=== PATIENT | female | born 1945 | race Caucasian/White ===

== ENCOUNTER 2017-09-24 06:07 | Day surgery (SDC) | payer MEDICARE, OTHER ==
[~2017-09-24] VITALS: Ht 157.5 cm; Wt 84.2 kg
[~2017-09-24 06:07] MED LIST: ANAS1 PO; ASCO250CH PO; ASPI81EC PO; Ativan1 MG PO; BUPR75; CALCIT950 PO; CALCITONIN; CALCIUM CITRAT1 EAC1 PO; CALMAGZIN PO; CARI350 PO; CETI10 PO; CHOL10002 PO; CIPR500 PO; CITA20; CLIN300 PO; CYAN1000I; CYANOCOBALAMIN; CYCL10 PO; Cymbalta60 MG PO; DICL25ER PO; DOCU100 PO; DULO30 PO; DULO60 PO; ENOX40I SC; FERROUS GLUCON PO; FLAX; FLAX PO; FOLIC; GABA300 PO; GINKO BILOBA PO; GLYCOLAX; HYDACE7.5 PO; HYDMOR2 PO; HYDROXYQUINOLINE1 GM PO; HYDSUL200 PO; Hydrocodone-Ap1 EA20 PO; LEVLIO1 PO; LEVSOD100; MAGGLU250 PO; MELA3 PO; MELO7.5 PO; METO50 PO; METO50ER PO; METPRE4DP PO; MIACALCIN; MULVITMIND; MULVITMINF PO; Mobic15 MG PO; NABU750; Norco 5-325 Ta1 EACH PO; OXYC10TA19 PO; OXYC5 PO; PROM12.5S PO; PROM25 PO; PROP65 PO; SALMON OIL PO; Super B With V1 EACH PO; THYR60 PO; TRAM50 PO; VITA25000 PO; VITAMINS; VITB100 PO; Vitamin B Comple1 EA PO; ZOLP10 PO; ZOLP5 PO; [UNRECOGNIZED DRUG - OTHER]; [UNRECOGNIZED DRUG - OTHER]; [UNRECOGNIZED DRUG - OTHER] PO; [UNRECOGNIZED DRUG - REMARK]
[2017-09-24] MEDS ORDERED: Desyrel50 MG PO (07:05)
[2017-12-30] MEDS ORDERED: POTASSIUM PO (15:26)
[2017-12-30] MEDS ORDERED: [UNRECOGNIZED DRUG - OTHER] PO (15:26)
[2017-12-30] MEDS ORDERED: TYLENOL PO (15:26)
[2017-12-30] MEDS ORDERED: CYAN1000I IM (15:27)
[2017-12-30] MEDS ORDERED: FLAX SEED OIL1000 MG PO (15:27)
[2017-12-30] MEDS ORDERED: Hair, Skin & N1 EACH PO (15:27)
[2017-12-30] MEDS ORDERED: PROLIA60 MG/1 ML SC (15:27)
[2017-12-30] MEDS ORDERED: CALTRATE PO (15:28)
== END 2017-09-24 08:25 | disposition home or self-care (01) ==
LOC: ORSCSDS 06:07
PROVIDERS: Otolaryngology
PROC: 0D758ZZ Dilation of Esophagus, Via Natural or Artificial Opening Endoscopic (ICD-10-PCS; principal; 2017-09-24 07:30)
DX: R13.14 Dysphagia, pharyngoesophageal phase (principal); I10 Essential (primary) hypertension; E03.9 Hypothyroidism, unspecified; E78.5 Hyperlipidemia, unspecified; M79.7 Fibromyalgia; F32.9 Major depressive disorder, single episode, unspecified; Z98.84 Bariatric surgery status; Z87.891 Personal history of nicotine dependence; Z79.899 Other long term (current) drug therapy
CPT/HCPCS: J1100; J1885; J7120

== ENCOUNTER → 2017-10-31 | Outpatient (CLI) | payer MEDICARE, OTHER ==
[~2017-10-31] MED LIST changes: +CALTRATE PO; +CYAN1000I IM; +Calcium Citrat200 MG PO; +DEX4 GLUCOSE BIT1 GM PO; +Desyrel50 MG PO; +ENOX40I PO; +FLAX SEED OIL1000 MG PO; +Hair, Skin & N1 EACH PO; +POTASSIUM PO; +PROLIA60 MG/1 ML SC; +TYLENOL PO; +[UNRECOGNIZED DRUG - OTHER] PO
[2017-11-03 21:32] LABS: Alpha Hyrdroxyalprazolam Not Detected (NOTDET); Alpha hydroxytriazolam Not Detected (NOTDET); Alprazolam Not Detected (NOTDET); Confirm Clonazepam LC/MS Not Detected (NOTDET); Confirm Flunitrazepam LC/MS Not Detected (NOTDET); Diazepam Not Detected (NOTDET); Flurazepam Not Detected (NOTDET); Lorazepam Not Detected (NOTDET); Midazolam Not Detected (NOTDET); Temazepam Not Detected (NOTDET)
== END ==
LOC: LAB EV 15:27
PROVIDERS: Student in an Organized Health Care Education/Training Program
DX: Z51.81 Encounter for therapeutic drug level monitoring (principal); Z79.899 Other long term (current) drug therapy
CPT/HCPCS: G0480

== ENCOUNTER 2018-01-14 08:49 | Day surgery (SDC) | payer MEDICARE, OTHER ==
[~2018-01-14] VITALS: Ht 157.5 cm; Wt 82.5 kg
[~2018-01-14 08:49] MED LIST changes: -Calcium Citrat200 MG PO; -DEX4 GLUCOSE BIT1 GM PO; -ENOX40I PO
[2018-01-14] MEDS ORDERED: Calcium Citrat200 MG PO (11:23)
[2018-01-15 04:04] LABS: BASOPHILS ABSOLUTE AUTO 0.02 K/mm3 (0.00-0.23); BASOPHILS PERCENT AUTO 0 % (0-2); EOSINOPHILS PERCENT AUTO 0 % (0-6); Hematocrit 32.8 % (33.0-51.0); Hemoglobin 10.8 g/dL (11.5-16.0); IMMATURE GRAN ABSOLUTE AUTO 0.04 K/mm3 (0.00-0.10); IMMATURE GRAN PERCENT AUTO 0 % (0-1); LYMPHOCYTES ABSOLUTE AUTO 0.93 K/mm3 (0.84-5.20); LYMPHOCYTES PERCENT AUTO 8 % (21-46); MONOCYTES ABSOLUTE AUTO 1.16 K/mm3 (0.16-1.47); MONOCYTES PERCENT AUTO 10 % (4-13); Mean Corpuscular HGB 30.9 pg (26.0-34.0); Mean Corpuscular HGB Conc 32.9 g/dL (31.5-36.5); Mean Corpuscular Volume 94 fL (80-100); Mean Platelet Volume 9.4 fL (9.1-12.4); NEUTROPHILS ABSOLUTE AUTO 9.84 K/mm3 (1.96-9.15); NEUTROPHILS PERCENT AUTO 82 % (41-73); Platelet Count 187 K/mm3 (150-400); RDW Coefficient Variation 13.6 % (11.7-14.2); RDW Standard Deviation 45.8 fL (35.1-46.3); White Blood Cell Count 11.99 K/mm3 (4.00-11.30)
[2018-01-15 04:26] LABS: Anion Gap 6 mmol/L (6-16); Blood Urea Nitrogen 14 mg/dL (8-24); Bun/Creatinine Ratio 24.1 (12.0-20.0); CO2, Blood 29 mmol/L (21-32); Calcium, Blood 7.6 mg/dL (8.5-10.1); Chloride, Blood 105 mmol/L (98-108); Creatinine, Blood 0.58 mg/dL (0.40-1.00); Glomerular Filtration Rate >60 (60-); Glucose, Blood 135 mg/dL (70-99); Magnesium, Blood 2.1 mg/dL (1.6-2.4); Potassium, Blood 3.3 mmol/L (3.5-5.5); Sodium, Blood 140 mmol/L (136-145)
[2018-01-15] MEDS ORDERED: DEX4 GLUCOSE BIT1 GM PO (07:55)
[2018-01-15] MEDS ORDERED: ENOX40I PO (14:10)
== END 2018-01-16 12:36 | disposition home or self-care (01) ==
LOC: ORSCMMR 08:49 → SURS 08:49 → PRE IP 08:49 → EDSTATUS 12:30 → PRE IP 12:30 → SURS 17:12 → ORSCMMR 01-16 12:36
PROVIDERS: Orthopaedic Surgery
PROC: 8E0YXBZ Computer Assisted Procedure of Lower Extremity (ICD-10-PCS; principal; 2018-01-16)
PROC: 0SRC0J9 Replacement of Right Knee Joint with Synthetic Substitute, Cemented, Open Approach (ICD-10-PCS; principal; 2018-01-16)
DX: M17.11 Unilateral primary osteoarthritis, right knee (principal); M79.7 Fibromyalgia; E88.81 Metabolic syndrome and other insulin resistance; E03.9 Hypothyroidism, unspecified; I10 Essential (primary) hypertension; Z79.899 Other long term (current) drug therapy; Z87.891 Personal history of nicotine dependence
CPT/HCPCS: 36415; 73560-RT; 80048; 82947; 83735; 85025; 86850; 86900; 86901; 88300; 97110; 97116; 97162; 97530; C1713; C1776; G8978; G8979; G8980; J0171; J0735; J1100; J1650; J1885; J2001; J2250; J2405; J2795; J3010; J3370; J7120

== ENCOUNTER → 2018-02-09 | Outpatient (CLI) | payer MEDICARE, OTHER ==
[~2018-02-09] MED LIST changes: +Calcium Citrat200 MG PO; +DEX4 GLUCOSE BIT1 GM PO; +ENOX40I PO
[2018-02-09 18:39] LABS: Alanine Aminotransfer (ALT/SGP 22 U/L (12-78); Albumin, Blood 3.6 g/dL (3.4-5.0); Albumin/Globulin Ratio 1.4 (0.8-1.8); Alk Phos 64 U/L (50-136); Anion Gap 7 mmol/L (6-16); Aspartate Aminotrans (AST/SGOT 28 U/L (12-37); Bilirubin, Total 0.4 mg/dL (0.1-1.0); Blood Urea Nitrogen 12 mg/dL (8-24); Bun/Creatinine Ratio 16.8 (12.0-20.0); CO2, Blood 32 mmol/L (21-32); Calcium, Blood 8.8 mg/dL (8.5-10.1); Chloride, Blood 101 mmol/L (98-108); Creatinine, Blood 0.71 mg/dL (0.40-1.00); Globulin, Blood 2.5 g/dL (2.2-4.0); Glomerular Filtration Rate >60 (60-); Glucose, Blood 92 mg/dL (70-99); Sodium, Blood 140 mmol/L (136-145); Total Protein, Blood 6.1 g/dL (6.4-8.2)
== END | disposition home or self-care (01) ==
LOC: LAB 14:45 → LAB SHORT 14:45
PROVIDERS: Internal Medicine Hematology & Oncology
DX: D51.9 Vitamin B12 deficiency anemia, unspecified (principal)
CPT/HCPCS: 80053; 83540; 83550

== ENCOUNTER 2018-03-18 18:54 | Emergency (ER) | payer MEDICARE, OTHER ==
[~2018-03-18] VITALS: Ht 154.9 cm; Wt 81.7 kg
[2018-03-18 19:36] LABS: BASOPHILS ABSOLUTE AUTO 0.07 K/mm3 (0.00-0.23); BASOPHILS PERCENT AUTO 1 % (0-2); EOSINOPHILS ABSOLUTE AUTO 0.43 K/mm3 (0.00-0.68); EOSINOPHILS PERCENT AUTO 6 % (0-6); Hematocrit 31.2 % (33.0-51.0); IMMATURE GRAN ABSOLUTE AUTO 0.02 K/mm3 (0.00-0.10); IMMATURE GRAN PERCENT AUTO 0 % (0-1); LYMPHOCYTES ABSOLUTE AUTO 2.23 K/mm3 (0.84-5.20); LYMPHOCYTES PERCENT AUTO 29 % (21-46); MONOCYTES PERCENT AUTO 9 % (4-13); Mean Corpuscular HGB Conc 32.1 g/dL (31.5-36.5); Mean Corpuscular Volume 97 fL (80-100); Mean Platelet Volume 9.5 fL (9.1-12.4); NEUTROPHILS ABSOLUTE AUTO 4.27 K/mm3 (1.96-9.15); NEUTROPHILS PERCENT AUTO 55 % (41-73); Platelet Count 241 K/mm3 (150-400); RDW Coefficient Variation 12.4 % (11.7-14.2); RDW Standard Deviation 44.2 fL (35.1-46.3); Red Blood Cell Count 3.23 M/mm3 (3.80-5.20); White Blood Cell Count 7.72 K/mm3 (4.00-11.30)
[2018-03-18 19:48] LABS: International Normalized Ratio 1.01; Prothrombin Time Results 10.4 Sec (9.7-11.5)
[2018-03-18 19:56] LABS: Alanine Aminotransfer (ALT/SGP 24 U/L (12-78); Albumin, Blood 2.9 g/dL (3.4-5.0); Albumin/Globulin Ratio 1.2 (0.8-1.8); Alk Phos 47 U/L (50-136); Anion Gap 7 mmol/L (6-16); Aspartate Aminotrans (AST/SGOT 24 U/L (12-37); Bilirubin, Total 0.2 mg/dL (0.1-1.0); Blood Urea Nitrogen 15 mg/dL (8-24); Bun/Creatinine Ratio 22.3 (12.0-20.0); CO2, Blood 32 mmol/L (21-32); Calcium, Blood 7.7 mg/dL (8.5-10.1); Chloride, Blood 106 mmol/L (98-108); Creatinine, Blood 0.67 mg/dL (0.40-1.00); Globulin, Blood 2.4 g/dL (2.2-4.0); Glomerular Filtration Rate >60 (60-); Glucose, Blood 120 mg/dL (70-99); Potassium, Blood 3.8 mmol/L (3.5-5.5); Sodium, Blood 145 mmol/L (136-145); Total Protein, Blood 5.3 g/dL (6.4-8.2)
== END 2018-03-18 21:20 | disposition short-term general hospital (02) ==
LOC: ER 18:54
PROVIDERS: Emergency Medicine
DX: K92.2 Gastrointestinal hemorrhage, unspecified (principal); Z88.0 Allergy status to penicillin; Z88.2 Allergy status to sulfonamides; Z88.5 Allergy status to narcotic agent; Z88.8 Allergy status to other drugs, medicaments and biological substances; Z79.899 Other long term (current) drug therapy; Z87.891 Personal history of nicotine dependence
CPT/HCPCS: 80053; 82272; 85025; 85610; 85730; 86850; 86900; 86901; 93005; 93010; 96361; 96374; 99285-25; C9113; J7030

== ENCOUNTER → 2018-10-19 | Outpatient (CLI) | payer MEDICARE, OTHER ==
[2018-10-19 19:50] LABS: Source, Urine Catheter
[2018-10-19 20:11] LABS: Appearance, Urine Hazy (Clear); Bilirubin, Urine Neg (Neg); Blood, Urine 3+ (Neg); Color, Urine Yellow (P-Yellow); Glucose Qualitative, Urine Neg (Neg); Ketones, Urine Neg (Neg); Leukocyte Esterase, Urine 2+ (Neg); Nitrite, Urine Neg (Neg); Protein, Urine 1+ (Neg); Urobilinogen, Urine NORM (Normal)
[2018-10-19 20:29] LABS: Bacteria Rare /hpf; Squamous Epithelial Cells Few /hpf (Few); White Blood Cells, Urine 25-50 /hpf (0-5)
[2018-10-19 20:30] LABS: Mucus Light (0-Heavy); Transitional Epithelial Cells Few /hpf (0-Rare)
[2018-10-21 15:07] LABS: HPV 16 Negative (Negative); HPV 18 Negative (Negative); HPV OTHER HR TYPES Negative (Negative)
== END | disposition home or self-care (01) ==
LOC: LAB 19:48 → LAB SHORT 19:48
PROVIDERS: Nurse Practitioner Women's Health
DX: R31.0 Gross hematuria (principal); R32 Unspecified urinary incontinence; Z91.89 Other specified personal risk factors, not elsewhere classified
CPT/HCPCS: 81001; 87077; 87086; 87186; 87624; G0123

== ENCOUNTER → 2018-12-07 | Outpatient (CLI) | payer MEDICARE, OTHER ==
[2018-12-07 17:24] LABS: Source, Urine Catheter
[2018-12-07 17:41] LABS: Bilirubin, Urine Neg (Neg); Blood, Urine 3+ (Neg); Glucose Qualitative, Urine Neg (Neg); Ketones, Urine Neg (Neg); Leukocyte Esterase, Urine 3+ (Neg); Nitrite, Urine Neg (Neg); Protein, Urine 2+ (Neg); Urobilinogen, Urine NORM (Normal); pH, Urine 6.5 (5.0-8.0)
[2018-12-07 17:58] LABS: Appearance, Urine Cloudy (Clear); Color, Urine Yellow (P-Yellow)
[2018-12-07 18:00] LABS: White Blood Cells, Urine TNTC /hpf (0-5)
[2018-12-07 18:01] LABS: Squamous Epithelial Cells Few /hpf (Few)
[2018-12-07 18:02] LABS: Bacteria Many /hpf; Transitional Epithelial Cells Few /hpf ({null, 0-Rare})
== END | disposition home or self-care (01) ==
LOC: LAB 17:23 → LAB SHORT 17:23
PROVIDERS: Nurse Practitioner Women's Health
DX: R30.0 Dysuria (principal)
CPT/HCPCS: 81001; 87077; 87086; 87186

== ENCOUNTER → 2018-12-08 | Outpatient (CLI) | payer MEDICARE, OTHER | LOC: LAB SHORT 16:43 → LAB 16:43 | DX: L08.9 Local infection of the skin and subcutaneous tissue, unspecified (principal); L56.8 Other specified acute skin changes due to ultraviolet radiation; L40.8 Other psoriasis | CPT/HCPCS: 87070; 87077; 87147; 87186; 87205 ==

== ENCOUNTER → 2019-01-06 | Outpatient (CLI) | payer MEDICARE, OTHER ==
[2019-01-06 18:59] LABS: Source, Urine Catheter
[2019-01-06 19:40] LABS: Bilirubin, Urine Neg (Neg); Blood, Urine Neg (Neg); Glucose Qualitative, Urine Neg (Neg); Ketones, Urine Neg (Neg); Leukocyte Esterase, Urine Neg (Neg); Nitrite, Urine Neg (Neg); Protein, Urine Neg (Neg); Urobilinogen, Urine NORM (Normal)
[2019-01-06 20:04] LABS: Appearance, Urine Clear (Clear); Color, Urine Yellow (P-Yellow)
== END | disposition home or self-care (01) ==
LOC: LAB 18:58 → LAB SHORT 18:58
PROVIDERS: Nurse Practitioner Women's Health
DX: N39.0 Urinary tract infection, site not specified (principal)
CPT/HCPCS: 81003

== ENCOUNTER → 2020-04-26 | Outpatient (CLI) | payer MEDICARE | END | disposition home or self-care (01) | LOC: LAB EV 17:10 → LAB SHORT 17:10 | DX: R82.998 Other abnormal findings in urine (principal) | CPT/HCPCS: 87077; 87086; 87186 ==

== ENCOUNTER 2020-09-01 11:47 | Inpatient (IN) | payer MEDICARE ==
[~2020-09-01] VITALS: Ht 154.9 cm; Wt 89.9 kg
[~2020-09-01 11:47] MED LIST changes: +CALCIUM CIT 311 EACH PO; -Calcium Citrat200 MG PO; +ESTRADIOL42.5 GM VAG
--- NOTE | 2020-09-06 07:45 | NUR ---
History, Chart, Medications and Allergies reviewed before start of procedure. Patient confirms NPO status and agrees with scheduled surgery. ROOM DELAYED GOING BACK WAITING FOR MEDICATIONS FROM PHARMACY
--- NOTE | 2020-09-06 11:55 | NUR ---
PT ARRIVED TO ROOM ON OWN BED, SLEEPY, ANSWERS QUESTIONS APPROPRIATELY, POST PO VS COMMENCED AND STABLE. PT'S OPERATIVE R SHOULDER WITH BULKY SPONGE TAPE AND GAUZE DRESSING C/D/I, NO SHADOWING. CAPILLARY REFILL <3 SECONDS, FINGER WARM/PINK, ABLE TO SQUEEZE THIS RN'S FINGERS, TOUCH SENSATION INTACT. PT 2L NC AT 97% SPO2. PT DENIES NAUSEA, DOES NOT RATE PAIN, NO GRIMACE/MOAN, IS FALLING ASLEEP DURING ASSESSMENT
--- NOTE | 2020-09-06 15:15 | NUR ---
PT/OT team treating patient and spouse.
--- NOTE | 2020-09-06 16:34 | NUR ---
post op vss complete and stable. pt sitting up in bed, is tolerating PO intake, has voided, states to incontinence issues, has been provided with pull-up style incontinent underwear. pt rates pain at 4/10 following analgesia per mar.
[2020-09-07 04:09] LABS: BASOPHILS ABSOLUTE AUTO 0.03 K/mm3 (0.00-0.23); BASOPHILS PERCENT AUTO 0 % (0-2); EOSINOPHILS ABSOLUTE AUTO 0.01 K/mm3 (0.00-0.68); EOSINOPHILS PERCENT AUTO 0 % (0-6); Hematocrit 29.2 % (33.0-51.0); Hemoglobin 9.5 g/dL (11.5-16.0); IMMATURE GRAN ABSOLUTE AUTO 0.08 K/mm3 (0.00-0.10); IMMATURE GRAN PERCENT AUTO 1 % (0-1); LYMPHOCYTES ABSOLUTE AUTO 1.38 K/mm3 (0.84-5.20); LYMPHOCYTES PERCENT AUTO 8 % (21-46); MONOCYTES ABSOLUTE AUTO 1.25 K/mm3 (0.16-1.47); MONOCYTES PERCENT AUTO 7 % (4-13); Mean Corpuscular HGB Conc 32.5 g/dL (31.5-36.5); Mean Corpuscular Volume 92 fL (80-100); Mean Platelet Volume 9.7 fL (9.1-12.4); NEUTROPHILS ABSOLUTE AUTO 14.28 K/mm3 (1.96-9.15); NEUTROPHILS PERCENT AUTO 84 % (41-73); Platelet Count 210 K/mm3 (150-400); RDW Coefficient Variation 13.1 % (11.7-14.2); RDW Standard Deviation 43.8 fL (35.1-46.3); Red Blood Cell Count 3.17 M/mm3 (3.80-5.20); White Blood Cell Count 17.03 K/mm3 (4.00-11.30)
[2020-09-07 04:30] LABS: Anion Gap 5 mmol/L (6-16); Blood Urea Nitrogen 11 mg/dL (8-24); Bun/Creatinine Ratio 16.2 (12.0-20.0); CO2, Blood 32 mmol/L (21-32); Calcium, Blood 8.7 mg/dL (8.5-10.1); Chloride, Blood 105 mmol/L (98-108); Creatinine, Blood 0.68 mg/dL (0.40-1.00); Glomerular Filtration Rate >60 (60-); Glucose, Blood 124 mg/dL (70-99); Magnesium, Blood 2.1 mg/dL (1.6-2.4); Potassium, Blood 3.7 mmol/L (3.5-5.5); Sodium, Blood 142 mmol/L (136-145)
--- NOTE | 2020-09-07 05:59 | NUR ---
SUMMARY PT TOLERATING OOB FOR BSC TONIGHT WITH 1 ASSIST.RUE IMMOBILIZER REMAINS IN PLACE.PT TOLERATING PO PAIN MEDS TONIGHT.VOIDING BOTH PER BSC AND ATTENDS PT IS INTERMITTENTLY INCONTINENT BASELINE.NEW IV WAS OBTAINED PER Sebastien NOGUERA RN FOR IV ANTIBIOTICS PRIOR IV NOTED INFILTRATED AND WAS UNABLE TO USE.
--- NOTE | 2020-09-07 07:30 | NUR ---
DR. ANGULO ROUNDED ON PT THIS AM. NOTIFIED THAT PT'S WBC COUNT IS ELEVATED AND SHE HAD A FEVER OF 100.1. PT UP TO CHAIR AND DEEP BREATHING ENCOURAGED.
--- NOTE | 2020-09-07 12:51 | NUR ---
09/07/20 1251 Heather Kapoor VERIFICATIONS: EDIT CHART.
--- NOTE | 2020-09-07 17:49 | NUR ---
22G IV REMOVED FROM L UPPER ARM.
--- NOTE | 2020-09-07 17:50 | NUR ---
DISCHARGE PT AND SPOUSE WERE PROVIDED WITH WRITTEN AND VERBAL DISCHARGE INSTRUCTIONS; THEY REPORTED UNDERSTANDING. DRESSINGS PROVIDED. PAIN MANAGED AT TIME OF DISCHARGE. VSS. SPOKE WITH DARREN AT DR. ANGULO'S OFFICE REGARDING HOME HEALTH PHYSICAL AND OCCUPATIONAL THERAPY, SHE REPORTED SHE WOULD ARRANGE IT. MILKA BRANDON NOTIFIED THAT FOLLOW-UP REGARDING HOME HEALTH WOULD BE NEEDED FOR THIS PT. TRANSPORT WITH [facility] ARRANGED FOR PT. PT DISCHARGED AT APPROXIMATELY 1500.
== END 2020-09-07 15:15 | disposition home or self-care (01) | DRG 483 ==
LOC: SURS 09-06 06:07 → PRE IP 09-06 07:30 → SURS 09-06 11:45
PROVIDERS: ADMIT Orthopaedic Surgery
PROC: 0RRJ00Z Replacement of Right Shoulder Joint with Reverse Ball and Socket Synthetic Substitute, Open Approach (ICD-10-PCS; principal; 2020-09-06 07:30)
DX: M19.011 Primary osteoarthritis, right shoulder (principal); I10 Essential (primary) hypertension; E66.9 Obesity, unspecified; G47.33 Obstructive sleep apnea (adult) (pediatric); Z98.84 Bariatric surgery status; M79.7 Fibromyalgia; Z68.37 Body mass index [BMI] 37.0-37.9, adult; Z87.891 Personal history of nicotine dependence
CPT/HCPCS: 36415; 73030; 80048; 83735; 85025; 88300; 97110; 97116; 97162; 97166; 97535; A9270; C1713; C1776; J0171; J0735; J1100; J1885; J2370; J2405; J2704; J2795; J3010; J3370; J7120

== ENCOUNTER → 2020-10-15 | Outpatient (CLI) | payer MEDICARE | END | disposition home or self-care (01) | LOC: PLD 16:23 → LAB SHORT 16:23 | DX: N39.0 Urinary tract infection, site not specified (principal) | CPT/HCPCS: 87086 ==

== ENCOUNTER → 2020-10-27 | Outpatient (CLI) | payer MEDICARE | END | disposition home or self-care (01) | LOC: LAB SHORT 17:26 → LAB EV 17:26 | DX: N39.0 Urinary tract infection, site not specified (principal) | CPT/HCPCS: 87077; 87086; 87186 ==

== ENCOUNTER → 2021-01-15 | Outpatient (CLI) | payer MEDICARE ==
[2021-01-16 10:40] LABS: Stool Occult Bld Immuno 1 Negative (NEGATIVE)
== END | disposition home or self-care (01) ==
LOC: EDSTATUS 10:55 → LAB SHORT 15:47 → LAB EV 15:47
PROVIDERS: Student in an Organized Health Care Education/Training Program
DX: D50.9 Iron deficiency anemia, unspecified (principal)
CPT/HCPCS: 82274

== ENCOUNTER → 2022-01-04 | Outpatient (CLI) | payer MEDICARE | END | disposition home or self-care (01) | LOC: LAB SHORT 16:41 | DX: N39.0 Urinary tract infection, site not specified (principal) | CPT/HCPCS: 87077; 87086; 87186 ==

== ENCOUNTER → 2022-10-08 | Outpatient (CLI) | payer MEDICARE ==
[2022-10-08 18:03] LABS: BASOPHILS ABSOLUTE AUTO 0.01 K/mm3 (0.00-0.23); BASOPHILS PERCENT AUTO 0 % (0-2); EOSINOPHILS ABSOLUTE AUTO 0.21 K/mm3 (0.00-0.68); EOSINOPHILS PERCENT AUTO 2 % (0-6); Hematocrit 38.9 % (33.0-51.0); IMMATURE GRAN ABSOLUTE AUTO 0.05 K/mm3 (0.00-0.10); IMMATURE GRAN PERCENT AUTO 0 % (0-1); LYMPHOCYTES ABSOLUTE AUTO 1.74 K/mm3 (0.84-5.20); LYMPHOCYTES PERCENT AUTO 15 % (21-46); MONOCYTES ABSOLUTE AUTO 0.65 K/mm3 (0.16-1.47); MONOCYTES PERCENT AUTO 6 % (4-13); Mean Corpuscular HGB 30.2 pg (26.0-34.0); Mean Corpuscular HGB Conc 33.4 g/dL (31.5-36.5); Mean Corpuscular Volume 91 fL (80-100); Mean Platelet Volume 9.2 fL (9.1-12.4); NEUTROPHILS ABSOLUTE AUTO 8.98 K/mm3 (1.96-9.15); NEUTROPHILS PERCENT AUTO 77 % (41-73); Platelet Count 339 K/mm3 (150-400); RDW Coefficient Variation 13.2 % (11.7-14.2); RDW Standard Deviation 43.3 fL (35.1-46.3); White Blood Cell Count 11.64 K/mm3 (4.00-11.30)
[2022-10-08 18:11] LABS: Albumin, Blood 3.4 g/dL (3.4-5.0); Bilirubin, Total 0.7 mg/dL (0.1-1.0); Bun/Creatinine Ratio 12.4 (12.0-20.0); Calcium, Blood 8.7 mg/dL (8.5-10.1); Creatinine, Blood 0.89 mg/dL (0.40-1.00); Globulin, Blood 3.3 g/dL (2.2-4.0); Potassium, Blood 3.5 mmol/L (3.5-5.5); Total Protein, Blood 6.7 g/dL (6.4-8.2)
[2022-10-08 18:58] LABS: Source, Urine Clean Catch
[2022-10-08 19:01] LABS: Bacteria Not Seen /hpf; Red Blood Cells, Urine 0-2 /hpf (0-2); Squamous Epithelial Cells Mod /hpf (Few)
== END | disposition home or self-care (01) ==
LOC: LAB 17:58 → LAB SHORT 17:58
PROVIDERS: Emergency Medicine
DX: R10.9 Unspecified abdominal pain (principal)
CPT/HCPCS: 80053; 81015; 85025

== ENCOUNTER 2022-10-11 18:25 | Emergency (ER) | payer OTHER, MEDICARE ==
[~2022-10-11] VITALS: Ht 157.5 cm; Wt 87.1 kg
== END 2022-10-11 20:52 | disposition home or self-care (01) ==
LOC: ER 18:25
DX: S00.83XA Contusion of other part of head, initial encounter (principal); M79.7 Fibromyalgia; M54.9 Dorsalgia, unspecified; G89.29 Other chronic pain; Z87.891 Personal history of nicotine dependence; Z79.899 Other long term (current) drug therapy; W01.198A Fall on same level from slipping, tripping and stumbling with subsequent striking against other object, initial encounter; Y92.009 Unspecified place in unspecified non-institutional (private) residence as the place of occurrence of the external cause
CPT/HCPCS: 70450; 71045; 99284-25

== ENCOUNTER → 2023-07-11 | Outpatient (CLI) | payer MEDICARE | LOC: LAB SHORT 17:49 → LAB 17:49 | DX: N30.00 Acute cystitis without hematuria (principal) | CPT/HCPCS: 87077; 87086; 87186 ==

== ENCOUNTER → 2023-12-01 | Outpatient (CLI) | payer MEDICARE ==
[2023-12-01 15:54] LABS: Source, Urine Clean Catch
[2023-12-01 16:12] LABS: Bacteria Many /hpf; Red Blood Cells, Urine 0-2 /hpf (0-2); Renal Epithelial Mod /hpf (0-Rare); Squamous Epithelial Cells Rare /hpf (Few); White Blood Cells, Urine 50-100 /hpf (0-5)
== END | disposition home or self-care (01) ==
LOC: LAB SHORT 15:52 → LAB 15:52
PROVIDERS: Physician Assistant Medical
DX: N39.0 Urinary tract infection, site not specified (principal); R30.0 Dysuria
CPT/HCPCS: 81015; 87077; 87086; 87186

== ENCOUNTER → 2024-04-26 | Outpatient (CLI) | payer MEDICARE | END | disposition home or self-care (01) | LOC: LAB SHORT 17:00 → LAB 17:00 | DX: N39.0 Urinary tract infection, site not specified (principal) | CPT/HCPCS: 87077; 87086; 87186 ==

== ENCOUNTER → 2024-05-11 | Outpatient (CLI) | payer MEDICARE | END | disposition home or self-care (01) | LOC: LAB 12:31 → LAB SHORT 12:31 | DX: R30.0 Dysuria (principal) | CPT/HCPCS: 87077; 87086; 87186 ==

== ENCOUNTER → 2024-06-11 | Outpatient (CLI) | payer MEDICARE | END | disposition home or self-care (01) | LOC: LAB SHORT 16:25 → LAB 16:25 | DX: R30.0 Dysuria (principal) | CPT/HCPCS: 87086 ==

== ENCOUNTER 2024-08-09 06:14 | Day surgery (SDC) | payer MEDICARE ==
[~2024-08-09] VITALS: Ht 157.5 cm; Wt 68.0 kg
[~2024-08-09 06:14] MED LIST changes: +CEPH500 PO; +Cyclobenzaprine5 MG PO; +OXYC10ER PO; +PROLIA60 MG/1 ML SQ; +TROSPIUM CHLORI60 MG PO
[2024-08-09] MEDS ORDERED: Lactated Ringer's 1,000 ML IV ONE (06:17)
[2024-08-09] MEDS ORDERED: CefTRIAXone Sodium 2,000 MG in NS 100 ML IV SCH (06:45)
[2024-08-09] MEDS ORDERED: Vancomycin HCL 1,000 MG in NS 250 ML IV SCH (06:45)
[2024-08-09] MEDS ORDERED: propofoL 20 ML IV ONE (06:52)
[2024-08-09] MEDS ORDERED: Midazolam HCl 1MG / ML 2ML Vial ONE (06:52)
[2024-08-09] MEDS ORDERED: FentaNYL Citrate 50 MCG/ML 2 ML Injection ONE (06:52)
[2024-08-09] MEDS ORDERED: Sugammadex Sodium 200 MG/2ML SDV (100 MG/ML) ONE (06:52)
[2024-08-09] MEDS ORDERED: Ondansetron HCl 2 MG / ML 2ML Vial ONE (06:53)
[2024-08-09] MEDS ORDERED: Dexamethasone Sod Phos 10 MG/ML 1ML VIAL ONE (06:53)
[2024-08-09] MEDS ORDERED: Rocuronium Bromide 10 MG/ML 5ML Injection IV ONE (06:53)
[2024-08-09] MEDS ORDERED: Lidocaine 2%-Epineph 1:200000 20 ML SDV ONE (06:54)
[2024-08-09] MEDS ORDERED: Bupivacaine 0.5% HCl 5 MG/ML 30MLVIAL ONE (06:54)
[2024-08-09] MEDS ORDERED: Dexmedetomidine HCL 200 MCG / 2 ML ONE (06:58)
[2024-08-09] MEDS ORDERED: CODACE30 PO (07:05)
[2024-08-09] MEDS ORDERED: Acetaminophen 500 MG Tab ONE (07:14)
[2024-08-09] MEDS ORDERED: OxyCODONE HCL 10 MG TABCR ONE (07:14)
[2024-08-09] MEDS ORDERED: Tranexamic Acid 100 ML IV ONE ×2 (07:16→10:26)
[2024-08-09] MEDS ORDERED: NS 1,000 ML IV ONE (07:35)
--- NOTE | 2024-08-09 07:51 | NUR ---
08/09/24 0751 IVAN PULIDO TIMEOUT:7594 BLOCK START: [address] NIX: 744 PATIENT SUPPORTED WITH OXYGEN TO MAINTAIN O2 SATURATIONS >90%. NO COMPLICATIONS.
[2024-08-09] MEDS ORDERED: Lidocaine 2%-Epineph 1:100000 20 ML MDV INJ ONE (08:24)
--- NOTE | 2024-08-09 08:31 | NUR ---
08/09/24 0830 Kinjal Desir FIRST DOSE OF TXA STARTED IN OR BY DR NIX AT 0811.
[2024-08-09] MEDS ORDERED: ePHEDrine Sulfate 50 MG/ML 1ML Injection ONE (08:48)
--- NOTE | 2024-08-09 10:30 | NUR ---
08/09/24 1030 BLAIR STARR PT IS AWAKE, DENIES PAIN AND NAUSEA. DIFFICULTY GETTING A CLEAN 3LEAD CHANGED OUT STICKERS/PLACEMENT MULTIPLE TIMES. CAME OUT ON NON-REBREATHER AT 15L. PT 100%, MASK WAS REMOVED BY PT. O2 STAYED AT 100% FOR SOME TIME BUT THEN DESAT INTO UPPER 80'S. NON-REBREATHER WAS PLACED BACK ON, HAD TO GO TO 15L TO START WITH. 100%. TRIAL ON 10L, STILL O2 AT 100% ON 10L. PT QUIET AT PRESENT. ADMITS THAT SHE IS WARM AND DOES NOT NEED ANY EXTRA BLANKETS.
--- NOTE | 2024-08-09 10:43 | NUR ---
08/09/24 1043 BLAIR STARR IMAGING HERE FOR XRAY. HAD DECREASED O2 TO 6L BUT PT STARTED TO DESAT INTO 80'S (UPPER). BACK ON 10L O2 VIA NON-REBREATHER. CURRENTLY O2 IS READING 100% PT IS CURRENTLY ON BED [place]. PT ABLE TO PASS GAS. BP READ 166/105 BUT THEN NEXT BP 178/122. SPOKE TO DR NIX ABOUT HYPERTENSION. WE HAVE AN ORDER TO GIVE LABATELOL IF NEEDED.
[2024-08-09 11:06] VITALS: BP 166/105
== END 2024-08-09 12:35 | disposition home or self-care (01) ==
LOC: ORSCSDS 06:14
PROVIDERS: Orthopaedic Surgery
PROC: 0RRK00Z Replacement of Left Shoulder Joint with Reverse Ball and Socket Synthetic Substitute, Open Approach (ICD-10-PCS; principal; 2024-08-09 07:30)
DX: M19.012 Primary osteoarthritis, left shoulder (principal); M75.122 Complete rotator cuff tear or rupture of left shoulder, not specified as traumatic; I10 Essential (primary) hypertension; G47.33 Obstructive sleep apnea (adult) (pediatric); Z87.891 Personal history of nicotine dependence; E03.9 Hypothyroidism, unspecified; M79.7 Fibromyalgia; Z85.3 Personal history of malignant neoplasm of breast; Z98.84 Bariatric surgery status; Z79.899 Other long term (current) drug therapy
CPT/HCPCS: 73030; A9270; C1713; C1776; J0696; J1100; J2250; J2405; J2704; J3010; J3370; J7050; J7120

== ENCOUNTER 2025-05-24 08:08 | Day surgery (SDC) | payer MEDICARE ==
[~2025-05-24] VITALS: Ht 157.5 cm; Wt 60.2 kg
[~2025-05-24 08:08] MED LIST changes: +Balanced Salt Epinephrine Irrigation Solution 500 mL IR SCH; +CODACE30 PO; +Moxifloxacin HCL 0.5 MG/0.1 ML 0.4MLSYR RIGHTEYE SCH; +NS 500 ML IV ONE; +NS 500 ML ONE; +Ondansetron 4 MG SoluTab MM PRN; +PHENYLEPHRINE\\TROPICAMIDE\\TETRACAINE OPHTHALMIC DILATING SOLN RIGHTEYE PRN; +Povidone-Iodine 450 DROP/30 ML Solution ONE; +Povidone-Iodine 450 DROP/30 ML Solution RIGHTEYE SCH; +Tetracaine HCl/Pf 0.5% Opth Soln 4 ml ONE; +diazePAM 5 MG,diazePAM 2 MG PO SCH
[2025-05-24] MEDS ORDERED: NS 500 ML IV ONE (08:33)
--- NOTE | 2025-05-24 08:34 | NUR ---
05/24/25 0834 Jeremy Alexander CALL LIGHT WITHIN REACH.
[2025-05-24] MEDS ORDERED: Midazolam HCl 1MG / ML 2ML Vial ONE (09:13)
[2025-05-24] MEDS ORDERED: Tetracaine HCl 0.5% Opth Soln 15 ml RIGHTEYE ONE (09:16)
[2025-05-24 09:38] VITALS: BP 152/75
== END 2025-05-24 09:55 | disposition home or self-care (01) ==
LOC: ORSCSDS 08:08
PROVIDERS: Student in an Organized Health Care Education/Training Program
PROC: 08RJ3JZ Replacement of Right Lens with Synthetic Substitute, Percutaneous Approach (ICD-10-PCS; principal; 2025-05-24 09:30)
DX: H25.813 Combined forms of age-related cataract, bilateral (principal); I10 Essential (primary) hypertension; G47.33 Obstructive sleep apnea (adult) (pediatric); E07.9 Disorder of thyroid, unspecified; Z79.899 Other long term (current) drug therapy; Z87.891 Personal history of nicotine dependence
CPT/HCPCS: J2003; J2250; J7040; V2632

== ENCOUNTER 2025-06-07 10:33 | Day surgery (SDC) | payer MEDICARE ==
[~2025-06-07] VITALS: Ht 157.5 cm; Wt 60.1 kg
[~2025-06-07 10:33] MED LIST changes: +Moxifloxacin HCL 0.5 MG/0.1 ML 0.4MLSYR LEFTEYE SCH; -Moxifloxacin HCL 0.5 MG/0.1 ML 0.4MLSYR RIGHTEYE SCH; -NS 500 ML ONE; -Ondansetron 4 MG SoluTab MM PRN; +PHENYLEPHRINE\\TROPICAMIDE\\TETRACAINE OPHTHALMIC DILATING SOLN LEFTEYE PRN; -PHENYLEPHRINE\\TROPICAMIDE\\TETRACAINE OPHTHALMIC DILATING SOLN RIGHTEYE PRN; +Povidone-Iodine 450 DROP/30 ML Solution LEFTEYE SCH; -Povidone-Iodine 450 DROP/30 ML Solution RIGHTEYE SCH; -diazePAM 5 MG,diazePAM 2 MG PO SCH
[2025-06-07] MEDS ORDERED: Midazolam HCl 1MG / ML 2ML Vial ONE (11:34)
[2025-06-07 11:56] VITALS: BP 147/78
== END 2025-06-07 12:13 | disposition home or self-care (01) ==
LOC: ORSCSDS 10:33
PROVIDERS: Student in an Organized Health Care Education/Training Program
PROC: 08RK3JZ Replacement of Left Lens with Synthetic Substitute, Percutaneous Approach (ICD-10-PCS; principal; 2025-06-07 12:00)
DX: E11.36 Type 2 diabetes mellitus with diabetic cataract (principal); H25.812 Combined forms of age-related cataract, left eye; Z96.1 Presence of intraocular lens; I10 Essential (primary) hypertension; K21.9 Gastro-esophageal reflux disease without esophagitis; E07.9 Disorder of thyroid, unspecified; Z79.899 Other long term (current) drug therapy
CPT/HCPCS: J2250; J7040; J7120; V2632